=== PATIENT | male | born 1980 | race Two or more races ===

== ENCOUNTER 2018-11-06 20:37 | Emergency (ER) | payer OTHER ==
[~2018-11-06] VITALS: Ht 182.9 cm; Wt 72.6 kg
--- NOTE | 2018-11-06 21:00 | NUR ---
ED Nurse Note: Recieved pt on [facility] awake, alert and oriented x 4, pt ambulating well with steady gait, here with c/o both feet hurt due to walking all day, both feet noted with dry skin, no redness or swelling, possible appears like athletes feet with odor, all pulses are present w/ cap refill less than 3 sec., pt gowned and immediately asked for sandwhich and fell asleep.
[2018-11-06 22:15] VITALS: BP 121/82
--- NOTE | 2018-11-06 23:00 | NUR ---
ED Nurse Note: Pt has been discharged to home, pt in bed sleeping, when awakened pt became very agitated, using profanity towards staff, pt denies being homeless, gave address and offered pt to stay if needed to, pt aid back down but continues to yell and shout profanity at all staff, calling us stupid and racial slurs, md aware, will allow pt to calm and continue to relax per md. pt very angry stating he has not seen md yet.
--- NOTE | 2018-11-06 23:26 | Emergency Room Report ---
History of Present Illness General Chief Complaint: Lower Extremity Injury Source: Patient Present Illness HPI Patient presents with reports that he is having increased difficulty and tenderness to both of his feet patient reports that he is homeless and he has been walking for longer than usual denies any fevers or chills Denies any knee pain denies any pelvic pain Denies any back or flank pain Denies any other trauma Allergies: Coded Allergies: No Known Allergies (Unverified , 11/06/18) Patient History Past Medical History: see triage record Reviewed Nursing Documentation: PMH: Agreed; PSxH: Agreed Nursing Documentation-PMH Past Medical History: No Stated History Review of Systems All Other Systems: negative except mentioned in HPI Physical Exam Vital Signs Date Time Temp Pulse Resp B/P (MAP) Pulse Ox O2 Delivery O2 Flow Rate FiO2 11/06/18 20:39 98.1 100 22 127/89 (102) 99 Room Air Sp02 EP Interpretation: reviewed, normal General Appearance: well appearing, no apparent distress Head: normocephalic, atraumatic Eyes: bilateral eye PERRL, bilateral eye EOMI ENT: hearing grossly normal, normal pharynx, TMs + canals normal, uvula midline Neck: full range of motion, supple, no meningismus, no bony tend Respiratory: lungs clear, normal breath sounds, no rhonchi, no respiratory distress, no retraction, no accessory muscle use Cardiovascular #1: normal peripheral pulses, regular rate, rhythm, no edema, no gallop, no JVD, no murmur Gastrointestinal: normal bowel sounds, non tender, soft, no mass, no organomegaly, non-distended, no guarding, no hernia, no pulsatile mass, no rebound Genitourinary: no CVA tenderness Musculoskeletal: other - Patient has some evidence of fungal growth on the base of his foot no other fluctuance or erythema Neurologic: oriented x3, responsive, retail consultant III-XII nml as tested, motor strength/ tone normal, sensory intact Psychiatric: mood/affect normal Skin: other - As above Lymphatic: normal inspection, no adenopathy Medical Decision Making Diagnostic Impression: Primary Impression: Athletes foot ER Course Patient's findings are consistent with repetitive use and also a fungal type infection of the base of both feet patient is provided with prescription for this And is stable for conservative outpatient trial Last Vital Signs Date Time Temp Pulse Resp B/P (MAP) Pulse Ox O2 Delivery O2 Flow Rate FiO2 11/06/18 20:39 98.1 100 22 127/89 (102) 99 Room Air Status: improved Disposition: HOME, SELF-CARE Condition: Improved Scripts Tolnaftate (TINACTIN) 30 Gm Cream..g. 1 INCH TP BID for 10 Days, GM Prov: Daniele Camargo DO 11/06/18 Referrals: NON PHYSICIAN (PCP) Additional Instructions: Patient is provided with the discharge instructions notified to follow up with primary doctor in the next 2-3 days otherwise return to the er with any worsening symptoms. Please note that this report is being documented using [employer] technology. This can lead to erroneous entry secondary to incorrect interpretation by the dictating instrument. Daniele Camargo DO Nov 06, 2018 23:26
[2018-11-06] MEDS ORDERED: TINACTIN30 GM TP (23:54)
--- NOTE | 2018-11-07 00:05 | NUR ---
ED Nurse Note: Pt remained in room, agitated and continues to speak to staff angrily, pt decided he did not want to stay and wants to go home now, went to inform md and pt left without d/c instructions and refused to sign, pt left facility awake and alert, ambulating with steay gait and nad noted.
[2018-11-07 01:05] VITALS: BP 127/89
== END 2018-11-07 01:05 | disposition home or self-care (01) ==
LOC: EMR 20:55
DX: B35.3 Tinea pedis (principal); Z59.0 Homelessness
CPT/HCPCS: 99282